=== PATIENT | female | born 1985 | race Caucasian/White ===

== ENCOUNTER → 2017-05-12 | Outpatient (CLI) | payer OTHER ==
[~2017-05-12] MED LIST: ASCO25TA PO; ATIV1TAB10 PO; ATIV1TAB7 PO; COLA100C5 PO; FERR325T3 PO; GLUCAGON FOR INJ 1 MG VIAL (J1610) As Ordered ONE; ISOVUE-370 76% 100ML VIAL (Q9967) As Ordered ONE; MOTR200T44 PO; MULTCAP8 PO; PERC5TAB12 PO; VITA500T PO; VoLumen 0.1% SUSPENSION 450ML BOTTLE As Ordered ONE
--- NOTE | 2017-05-12 11:12 | REP ---
Clinical: Idiopathic anemia. Technique: Axial contrast enhanced images from the lung bases to the pubic symphysis using 100 ml Isovue 370 intravenous contrast material with coronal and sagittal re-formations.. Findings: The small and large bowel is diffusely fluid-filled. The mid to distal ileum demonstrates moderate circumferential mural thickening and perienteric stranding including mesenteric "comb sign" along with reactive adenopathy. These findings are most compatible with inflammatory bowel diseases including Crohn's disease as well as lupus vasculitis. There is no evidence for bowel obstruction. No ascites or drainable collection/abscess. Liver, spleen, pancreas, gallbladder, bilateral adrenal glands and kidneys are normal. Pelvis demonstrates normal bladder and evidence for prior hysterectomy. Abdominal aorta and vasculature appears normal. Surrounding musculoskeletal structures are intact. Lung bases are clear. Impression: Findings involving the mid to distal small bowel as described above. 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 Signed by Johny Mon MD 05/12/2017 11:03 A
== END ==
LOC: M RAD 08:15
PROVIDERS: ATTEND Internal Medicine Gastroenterology
DX: D64.9 Anemia, unspecified (principal)

== ENCOUNTER 2017-05-20 10:37 | Day surgery (SDC) | payer OTHER ==
[~2017-05-20] VITALS: Ht 163.8 cm; Wt 49.4 kg
[~2017-05-20 10:37] MED LIST changes: -GLUCAGON FOR INJ 1 MG VIAL (J1610) As Ordered ONE; -ISOVUE-370 76% 100ML VIAL (Q9967) As Ordered ONE; -VoLumen 0.1% SUSPENSION 450ML BOTTLE As Ordered ONE
[2017-05-20] MEDS ORDERED: NS 1,000 ML IV ONE (11:00)
[2017-05-20] MEDS ORDERED: LIDOCAINE 2% INJ 100 MG/5 ML SDV (FOR ANES.) As Ordered ONE (12:50)
[2017-05-20] MEDS ORDERED: PROPOFOL 200 MG/20 ML VIAL As Ordered ONE (12:50)
--- NOTE | 2017-05-20 13:04 | ROOR ---
Patient Name: Anitra Patel Procedure Date: 05/20/2017 12:13 PM Date of : 1985 Age: 31 Room: [facility] Gender: Female Note Status: Finalized Procedure: Total Colonoscopy to Cecum + ileoscopy + Bx Indications: Lower abdominal pain, Clinically significant diarrhea of unexplained origin, Abnormal CT of the GI tract Providers: Dimas Zhong MD Referring MD: [facility], [place] Requesting Provider: Medicines: Monitored Anesthesia Care Complications: No immediate complications. Procedure: Pre-Anesthesia Assessment: - The heart rate, respiratory rate, oxygen saturations, blood pressure, adequacy of pulmonary ventilation, and response to care were monitored throughout the procedure. The Colonoscope was introduced through the anus and advanced to the terminal ileum, with identification of the appendiceal orifice and IC valve. The colonoscopy was performed without difficulty. The patient tolerated the procedure well. The quality of the bowel preparation was good. Findings: The perianal and digital rectal examinations were normal. Non-bleeding internal hemorrhoids were found during retroflexion. The hemorrhoids were small and Grade I (internal hemorrhoids that do not prolapse). A diffuse area of mildly erythematous and Apthous ulcers of the mucosa was found in the entire colon. Biopsies for histology were taken with a cold forceps from the cecum, ascending colon, transverse colon and descending colon for evaluation of microscopic colitis. The exam was otherwise without abnormality. The terminal ileum appeared normal. Impression: - Non-bleeding internal hemorrhoids. - Erythematous and ulcerated mucosa in the entire examined colon. Biopsied. - The examination was otherwise normal. - The examined portion of the ileum was normal. - The exam was otherwise normal to the cecum. Recommendation: - Patient has a contact number available for emergencies. The signs and symptoms of potential delayed complications were discussed with the patient. Return to normal activities tomorrow. Written discharge instructions were provided to the patient. - Discharge patient to home. - Continue present medications. - Await pathology results. - Telephone GI clinic for pathology results in 1 week. - Return to referring physician. - Repeat colonoscopy at age 50 for screening purposes. - Return to GI office in 6 weeks. - The findings and recommendations were discussed with the patient's family. Dimas Zhong MD Dimas Zhong MD 05/20/2017 1:03:53 PM This report has been signed electronically. Number of Addenda: 0 Note Initiated On: 05/20/2017 12:13 PM Estimated Blood Loss: Estimated blood loss: none.
[2017-05-20 13:30] VITALS: BP 117/54
== END 2017-05-20 13:40 | disposition home or self-care (01) ==
LOC: M OPP 10:37
PROVIDERS: ATTEND Internal Medicine Gastroenterology
DX: K64.0 First degree hemorrhoids (principal); K63.89 Other specified diseases of intestine; K63.3 Ulcer of intestine; R19.7 Diarrhea, unspecified; R93.3 Abnormal findings on diagnostic imaging of other parts of digestive tract; K58.0 Irritable bowel syndrome with diarrhea; G43.909 Migraine, unspecified, not intractable, without status migrainosus; F41.9 Anxiety disorder, unspecified; Z79.899 Other long term (current) drug therapy; Z83.79 Family history of other diseases of the digestive system; Z98.86 Personal history of breast implant removal; Z96.22 Myringotomy tube(s) status; Z90.711 Acquired absence of uterus with remaining cervical stump

== ENCOUNTER → 2017-08-13 | Outpatient (REF) | payer OTHER ==
[2017-08-13 11:37] LABS: HEMOGLOBIN 14.2 g/dl (12.0-16.0); MEAN CORPUSCULAR HEMOGLOBIN 26.9 pg (27.0-33.0); MEAN CORPUSCULAR HGB CONC 32.3 g/dl (32.0-36.5); MEAN CORPUSCULAR VOLUME 83.5 fl (80.0-96.0); PLATELET COUNT, AUTOMATED 353 10^3/uL (150-450); RED BLOOD COUNT 5.27 10^6/uL (4.00-5.40); RED CELL DISTRIBUTION WIDTH 12.6 % (11.5-14.5)
[2017-08-13 11:55] LABS: ALBUMIN 3.6 GM/DL (3.2-5.2); ALBUMIN/GLOBULIN RATIO 1.13 (1.00-1.93); ALKALINE PHOSPHATASE 64 U/L (45-117); ALT/SGPT 18 U/L (12-78); ANION GAP 6 MEQ/L (8-16); AST/SGOT 14 U/L (7-37); BILIRUBIN,TOTAL 0.5 MG/DL (0.2-1.0); BLOOD UREA NITROGEN 11 MG/DL (7-18); CARBON DIOXIDE LEVEL 30 MEQ/L (21-32); CHLORIDE LEVEL 106 MEQ/L (98-107); CREATININE FOR GFR 0.89 MG/DL (0.55-1.30); GLOMERULAR FILTRATION RATE > 60.0 (>60); GLUCOSE, FASTING 87 MG/DL (70-100); POTASSIUM SERUM 4.5 MEQ/L (3.5-5.1); SODIUM LEVEL 142 MEQ/L (136-145); TOTAL PROTEIN 6.8 GM/DL (6.4-8.2)
[2017-08-13 11:58] LABS: PROLACTIN 5.4 NG/ML
== END ==
LOC: M SFHCLERA 07:55
DX: N64.52 Nipple discharge (principal)

== ENCOUNTER → 2017-08-14 | Outpatient (CLI) | payer OTHER | LOC: M RAD 10:21 | DX: N64.52 Nipple discharge (principal); N60.01 Solitary cyst of right breast; N60.02 Solitary cyst of left breast; Z98.82 Breast implant status | CPT/HCPCS: 77066 ==

== ENCOUNTER → 2019-10-01 | Outpatient (REF) | payer OTHER ==
[~2019-10-01] MED LIST changes: -ASCO25TA PO; +VITA-243 PO; +VITA1TAB23 PO; -VITA500T PO
[2019-10-01 21:20] LABS: CHLAMYDIA DNA AMPLIFICATION NEGATIVE (NEGATIVE); GC DNA AMPLIFICATION NEGATIVE (NEGATIVE)
== END ==
LOC: M SFHCLERA 11:20
PROVIDERS: ATTEND Physician Assistant
DX: R30.0 Dysuria (principal)
CPT/HCPCS: 81002; 81025; 87088; 87186; 87661; G0463

== ENCOUNTER 2021-12-19 00:13 | Emergency (ER) | payer OTHER, SELFPAY ==
[~2021-12-19] VITALS: Ht 162.6 cm; Wt 52.3 kg
[~2021-12-19 00:13] MED LIST changes: +ASCO250T20 PO; -VITA1TAB23 PO
[2021-12-19 00:47] LABS: BASO % 0.5 % (0.0-1.0); EOS % 0.4 % (0.0-3.0); HEMATOCRIT 38.7 % (36.0-47.0); HEMOGLOBIN 13.5 g/dl (12.0-15.5); LYMPH # 1.5 10^3/uL (1.5-5.0); LYMPH % 20.1 % (24.0-44.0); MEAN CORPUSCULAR HEMOGLOBIN 30.3 pg (27.0-33.0); MEAN CORPUSCULAR HGB CONC 34.9 g/dl (32.0-36.5); MONO # 0.4 10^3/uL (0.0-0.8); MONO % 4.8 % (2.0-8.0); NEUTROPHILS # 5.6 10^3/uL (1.5-8.5); NEUTROPHILS % 73.8 % (36.0-66.0); PLATELET COUNT, AUTOMATED 292 10^3/uL (150-450); RED BLOOD COUNT 4.45 10^6/uL (4.00-5.40); WHITE BLOOD COUNT 7.5 10^3/uL (4.0-10.0)
[2021-12-19 00:57] LABS: INR 0.91; PROTHROMBIN TIME 12.7 SECONDS (12.7-14.5)
[2021-12-19 01:18] LABS: HCG, SERUM QUALITATIVE NEGATIVE (NEGATIVE)
[2021-12-19] MEDS ORDERED: BOOSTRIX/ADACEL VACCINE (DIPHTH/PERTUSS/ACELL/TETANUS) 0.5ML SYR IM.IMMUN ONE (01:35)
[2021-12-19 01:51] LABS: ALBUMIN 3.8 GM/DL (3.2-5.2); ALT/SGPT 24 U/L (12-78); AMYLASE 44 U/L (25-115); BILIRUBIN,DIRECT 0.2 MG/DL (0.0-0.2); BILIRUBIN,TOTAL 0.4 MG/DL (0.2-1.0); ETHYL ALCOHOL (ETHANOL) 0.138 % (0.000-0.010); LIPASE 137 U/L (73-393); TOTAL PROTEIN 6.6 GM/DL (6.4-8.2)
[2021-12-19] MEDS ORDERED: NS 1,000 ML IV ONE (02:00)
[2021-12-19 02:14] LABS: BLOOD UREA NITROGEN 7 MG/DL (7-18); CALCIUM LEVEL 8.9 MG/DL (8.5-10.1); CARBON DIOXIDE LEVEL 23 MEQ/L (21-32); CHLORIDE LEVEL 111 MEQ/L (98-107); CREATININE FOR GFR 0.86 MG/DL (0.55-1.30); GLOMERULAR FILTRATION RATE > 60.0 (>60); GLUCOSE, FASTING 111 MG/DL (70-100); POTASSIUM SERUM 3.8 MEQ/L (3.5-5.1); SODIUM LEVEL 144 MEQ/L (136-145)
[2021-12-19] MEDS ORDERED: KETOROLAC 30 MG/ML 1ML VIAL IV ONE (03:15)
[2021-12-19 04:45] VITALS: BP 102/50
== END 2021-12-19 05:03 | disposition home or self-care (01) ==
LOC: EDBD 00:13 → M ED 00:13
DX: S00.03XA Contusion of scalp, initial encounter (principal); S63.502A Unspecified sprain of left wrist, initial encounter; T14.8XXA Other injury of unspecified body region, initial encounter; V03.10XA Pedestrian on foot injured in collision with car, pick-up truck or van in traffic accident, initial encounter; Y92.410 Unspecified street and highway as the place of occurrence of the external cause
CPT/HCPCS: 70450; 71045; 73110; 73130; 73610; 80048; 80076; 82077; 82150; 83605; 83690; 84703; 85025; 85610; 85730; 90471; 90715; 93041; 94760; 96361; 96374; 99285; J1885

== ENCOUNTER → 2022-06-05 | Outpatient (CLI) | payer OTHER ==
[~2022-06-05] MED LIST changes: +GASTROGRAFIN SOLUTION 30ML As Ordered ONE; +ISOVUE-370 76% 100ML VIAL As Ordered ONE
== END ==
LOC: M RAD 14:24
PROVIDERS: ATTEND Internal Medicine Gastroenterology
DX: K50.00 Crohn's disease of small intestine without complications (principal)